=== PATIENT | male | born 1985 | race African-American/Black ===

== ENCOUNTER 2018-05-04 16:17 | Emergency (ER) | payer SELFPAY ==
[~2018-05-04] VITALS: Ht 175.3 cm; Wt 81.6 kg
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
[2018-05-04 16:47] VITALS: BP 122/80
--- NOTE | 2018-05-04 16:47 | NUR ---
Patient discharged to home in stable condition. Written and verbal after care instructions given. Patient verbalizes understanding of instruction.
== END 2018-05-04 16:48 | disposition home or self-care (01) ==
LOC: ER 16:23
DX: S46.812A Strain of other muscles, fascia and tendons at shoulder and upper arm level, left arm, initial encounter (principal); V49.49XA Driver injured in collision with other motor vehicles in traffic accident, initial encounter; Y93.89 Activity, other specified; Y92.413 State road as the place of occurrence of the external cause; Y99.8 Other external cause status
CPT/HCPCS: 99281; A4606; Z7610; Z7502